=== PATIENT | female | born 1980 | race Caucasian/White ===

== ENCOUNTER → 2016-10-13 | Outpatient (CLI) | payer OTHER ==
--- NOTE | 2016-10-13 13:29 | KCIC ---
FINGER(S) LEFT History: Injury to left index finger, pain and bruising Comparison: None. Findings: 3 views of the left hand with attention to the second digit are submitted. No acute fracture, dislocation, radiopaque foreign body is identified. Joint spaces are maintained. Impression: 1. No acute osseous abnormality is identified. Electronically signed by: Kishore Dudley MD (10/13/2016 1:26 PM) [id number]
== END | disposition home or self-care (01) ==
LOC: KCIC 12:07
PROVIDERS: ATTEND Nurse Practitioner Family
DX: M79.645 Pain in left finger(s) (principal)
CPT/HCPCS: 73140